=== PATIENT | female | born 1950 | race Caucasian/White ===

== ENCOUNTER 2020-08-14 11:12 | Outpatient (REF) | payer MEDICARE, SELFPAY | END 2020-08-14 11:13 | disposition home or self-care (01) | LOC: HO.BBR 11:12 | PROVIDERS: PCP Family Medicine; Visit Provider Internal Medicine Medical Oncology | DX: Z13.89 Encounter for screening for other disorder (principal) ==

== ENCOUNTER 2020-09-03 14:13 | Outpatient (REF) | payer MEDICARE, SELFPAY | END 2020-09-03 14:14 | disposition home or self-care (01) | LOC: HO.BBR 14:13 | PROVIDERS: Visit Provider Internal Medicine Medical Oncology | DX: Z13.89 Encounter for screening for other disorder (principal) ==

== ENCOUNTER 2020-10-01 14:01 | Outpatient (REF) | payer MEDICARE, SELFPAY | END 2020-10-01 14:02 | disposition home or self-care (01) | LOC: HO.BBR 14:01 | PROVIDERS: Visit Provider Internal Medicine Medical Oncology | DX: Z13.89 Encounter for screening for other disorder (principal) ==

== ENCOUNTER 2020-11-06 14:03 | Outpatient (REF) | payer MEDICARE, SELFPAY | END 2020-11-06 14:04 | disposition home or self-care (01) | LOC: HO.BBR 14:03 | PROVIDERS: Visit Provider Internal Medicine Medical Oncology | DX: Z13.89 Encounter for screening for other disorder (principal) ==

== ENCOUNTER 2020-12-10 14:00 | Outpatient (REF) | payer MEDICARE, SELFPAY | END 2020-12-10 14:01 | disposition home or self-care (01) | LOC: HO.BBR 14:00 | PROVIDERS: Visit Provider Internal Medicine Medical Oncology | DX: Z13.89 Encounter for screening for other disorder (principal) ==

== ENCOUNTER 2021-01-21 14:08 | Outpatient (REF) | payer MEDICARE, SELFPAY | END 2021-01-21 14:09 | disposition home or self-care (01) | LOC: HO.BBR 14:08 | PROVIDERS: Visit Provider Internal Medicine Medical Oncology | DX: Z13.89 Encounter for screening for other disorder (principal) ==

== ENCOUNTER 2021-03-05 14:02 | Outpatient (REF) | payer MEDICARE, SELFPAY | END 2021-03-05 14:03 | disposition home or self-care (01) | LOC: HO.BBR 14:02 | PROVIDERS: Visit Provider Internal Medicine Medical Oncology | DX: Z13.89 Encounter for screening for other disorder (principal) ==

== ENCOUNTER 2021-05-08 14:06 | Outpatient (REF) | payer MEDICARE, SELFPAY | END 2021-05-08 14:07 | disposition home or self-care (01) | LOC: HO.BBR 14:06 | PROVIDERS: Visit Provider Internal Medicine Medical Oncology | DX: Z13.89 Encounter for screening for other disorder (principal) ==

== ENCOUNTER 2021-07-18 14:34 | Outpatient (REF) | payer MEDICARE, SELFPAY | END 2021-07-18 14:35 | disposition home or self-care (01) | LOC: HO.BBR 14:34 | PROVIDERS: Visit Provider Internal Medicine Medical Oncology | DX: Z13.89 Encounter for screening for other disorder (principal) ==

== ENCOUNTER 2021-09-12 14:00 | Outpatient (REF) | payer MEDICARE, SELFPAY | END 2021-09-12 14:01 | disposition home or self-care (01) | LOC: HO.BBR 14:00 | PROVIDERS: Visit Provider Internal Medicine Medical Oncology | DX: Z13.89 Encounter for screening for other disorder (principal) ==

== ENCOUNTER 2021-11-12 14:00 | Outpatient (REF) | payer MEDICARE, SELFPAY | END 2021-11-12 14:01 | disposition home or self-care (01) | LOC: HO.BBR 14:00 | PROVIDERS: Visit Provider Internal Medicine Medical Oncology | DX: Z13.89 Encounter for screening for other disorder (principal) ==

== ENCOUNTER 2022-01-21 13:59 | Outpatient (REF) | payer MEDICARE, SELFPAY | END 2022-01-21 14:00 | disposition home or self-care (01) | LOC: HO.BBR 13:59 | PROVIDERS: Visit Provider Internal Medicine Medical Oncology | DX: Z13.89 Encounter for screening for other disorder (principal) ==

== ENCOUNTER 2022-08-12 14:01 | Outpatient (REF) | payer MEDICARE, SELFPAY | END 2022-08-12 14:02 | disposition home or self-care (01) | LOC: HO.BBR 14:01 | PROVIDERS: Visit Provider Internal Medicine Medical Oncology | DX: Z13.89 Encounter for screening for other disorder (principal) ==

== ENCOUNTER 2022-10-06 14:02 | Outpatient (REF) | payer MEDICARE, SELFPAY | END 2022-10-06 14:03 | disposition home or self-care (01) | LOC: HO.BBR 14:02 | PROVIDERS: Visit Provider Internal Medicine Medical Oncology | DX: Z13.89 Encounter for screening for other disorder (principal) ==

== ENCOUNTER 2022-10-27 13:12 | Outpatient (REF) | payer MEDICARE, SELFPAY | END 2022-10-27 13:13 | disposition home or self-care (01) | LOC: HO.BBR 13:12 | PROVIDERS: Visit Provider Internal Medicine Medical Oncology | DX: Z13.89 Encounter for screening for other disorder (principal) ==

== ENCOUNTER 2022-12-28 14:01 | Outpatient (REF) | payer MEDICARE, SELFPAY | END 2022-12-28 14:02 | disposition home or self-care (01) | LOC: HO.BBR 14:01 | PROVIDERS: Visit Provider Internal Medicine Medical Oncology | DX: Z13.89 Encounter for screening for other disorder (principal) ==

== ENCOUNTER 2023-03-08 14:02 | Outpatient (REF) | payer MEDICARE, SELFPAY | END 2023-03-08 14:03 | disposition home or self-care (01) | LOC: HO.BBR 14:02 | PROVIDERS: Visit Provider Internal Medicine Medical Oncology | DX: Z13.89 Encounter for screening for other disorder (principal) ==

== ENCOUNTER 2023-06-18 14:01 | Outpatient (REF) | payer MEDICARE, SELFPAY | END 2023-06-18 14:02 | disposition home or self-care (01) | LOC: HO.BBR 14:01 | PROVIDERS: PCP Family Medicine; Visit Provider Internal Medicine Medical Oncology | DX: Z13.89 Encounter for screening for other disorder (principal) ==

== ENCOUNTER 2023-09-17 14:20 | Outpatient (REF) | payer MEDICARE, SELFPAY | END 2023-09-17 14:21 | disposition home or self-care (01) | LOC: HO.BBR 14:20 | PROVIDERS: PCP Family Medicine; Visit Provider Internal Medicine Medical Oncology | DX: Z13.89 Encounter for screening for other disorder (principal) ==

== ENCOUNTER 2023-12-21 14:03 | Outpatient (REF) | payer MEDICARE, SELFPAY | END 2023-12-21 14:04 | disposition home or self-care (01) | LOC: HO.BBR 14:03 | PROVIDERS: PCP Family Medicine; Visit Provider Internal Medicine Medical Oncology | DX: Z13.89 Encounter for screening for other disorder (principal) ==

== ENCOUNTER 2024-04-07 14:05 | Outpatient (REF) | payer MEDICARE, SELFPAY | END 2024-04-07 14:06 | disposition home or self-care (01) | LOC: HO.BBR 14:05 | PROVIDERS: PCP Family Medicine; Visit Provider Internal Medicine Medical Oncology | DX: Z13.89 Encounter for screening for other disorder (principal) ==

== ENCOUNTER 2024-04-11 14:14 | Outpatient (REF) | payer MEDICARE, SELFPAY | END 2024-04-11 14:15 | disposition home or self-care (01) | LOC: HO.BBR 14:14 | PROVIDERS: PCP Family Medicine; Visit Provider Internal Medicine Medical Oncology | DX: Z13.89 Encounter for screening for other disorder (principal) ==

== ENCOUNTER 2024-04-18 14:04 | Outpatient (REF) | payer MEDICARE, SELFPAY | END 2024-04-18 14:05 | disposition home or self-care (01) | LOC: HO.BBR 14:04 | PROVIDERS: PCP Family Medicine; Visit Provider Internal Medicine Medical Oncology | DX: Z13.89 Encounter for screening for other disorder (principal) ==

== ENCOUNTER 2024-07-19 14:02 | Outpatient (REF) | payer MEDICARE, SELFPAY ==
--- OUTSIDE RECORDS SUMMARY | 2024-07-19 16:22 | XMS_ITS | Clinical Summary ---
Author Organization [facility] Address [address] [place] [address] Phone Care Team Providers Care Cath Lab Radiology Technician Name Role Phone [facility] Unavailable [phone] Reason for Visit and Chief Complaint Established Patient Plan of Treatment Pending Tests Order Diagnosis Results Due Ordering P olga Follow Up - Appointment 1 Month Displace d spiral fracture of shaft of right tibia, sequela 06/29/22 Nichol SHORT Last Documented On 3 11:59AM ; [facility] In House X-Rays - X-Rays Tibia / fibula, right 2 views ([id number]) Displaced spiral fracture of shaft of right tibia, sequela 07/01/22 Nichol SHORT Last Documented On 3 11:59AM ; [facility] Assessments Includes: Assessments from this encounter No Assessments Recorded Medical Equipment - Implanted Devices Includes: Current Devices No Medical Equipment Recorded Medications Includes: Medications discussed during this encounter and other current Medications Current Medications (continue as prescribed) Tylenol Oral Tablet 04/27/2022 Provider: Diagnosis: Last Documented On 2 10:55AM By Kee Davalos ; [facility] oxyCODONE HCl 5 MG Oral Capsule 04/27/2022 Provider: Diagnosis: Last Documented On 2 10:55AM By Kee Davalos ; [facility] Medications Administered Includes: Administered Medications from this encounter No Administered Medications Recorded Vital Signs Includes: Vital Signs from this encounter Vital Name 06/29/2022 10:33A Blood Pressure Sitting (mmHg) 170/98 Pulse Rate-Sitting (bpm) 88 Temp-Temporal 97.2 Height (in) 64 Weight (lb) 128 Body Mass Index 22 Body Surface Area 1.6 Oxygen Saturation (%) 97 Last Documented: On 06/29/2022 10:33A M ; [facility], Results Includes: Results discussed during this encounter No Results Recorded For Specified Dates History of Present Illness Includes: History of Present Illness from this encounter No History of Present Illness Recorded Social History No Social History Recorded - Smoking Status Unknown Medical History Includes: Medical History addressed during this encounter No Medical History Recorded Family History Includes: Family History addressed during this encounter No Family History Recorded Review of Systems Includes: Review of Systems from this encounter Chief complaint: Follow-up ORIF right tibia and fibula History of present illness: Patient is 72-year-old female who is status post ORIF right distal tibia and fibula by Dr. Redd on 04/11/2022. She was last seen in the office on 05/28/2022. She is seen today for routine follow-up. At her last appointment the tall fracture boot was discontinued for sleeping but she was instructed to continue to wear otherwise. She has been nonweightbearing. Patient is accompanied today by her . She reports pain compliance with wearing the boot throughout the day and maintaining nonweightbearing. Patient is anxious to advance her weightbearing and to get rid of the boot. She complains of diffuse swelling about the ankle and foot. She denies right ankle pain but has been compliant with nonweightbearing. No other complaints at this time. Physical exam: General: Pleasant female sitting comfortably on exam table. In no acute stress. Musculoskeletal: 1 suture noted over anterior mid lower leg which I removed, minimal bleeding noted, Band-Aid applied. Diffuse swelling throughout lower extemity. Well healed surgical scars. Nontender palpation throughout lower leg and ankle. Limited ankle dorsiflexion plantarflexion secondary to stiffness. Sensation intact to light touch over tibial, deep peroneal and superficial peroneal nerve distribution. Fires EHL,FHL, ankle dorsiflexion/plantarflexion. Toes warm well-perfused. Diagnostic imaging: Radiographic images obtained today are compared to those from 05/28/2022 of the right tibia and fibula and right ankle. There is continued satisfactory reduction of the fractures and position of the implants. No definite fracture callus is yet seen. Impression: Status post ORIF right tibia and fibula Plan: The patient may discontinue the fracture boot for sleeping but should wear it otherwise. She should continue nonweightbearing. I described range of motion exercises of the foot and ankle. I asked her to return in 1 month for reexamination and x-ray of the right tibia and fibula. I would anticipate beginning weightbearing and initiating formal physical therapy at that time. Plan: Activity: Advance weightbearing in the fracture boot by 10 lb per day until FWB in boot, recommend using bathroom scale to quantify, ambulate with walker, rest, ice and elevate as needed. Therapy: Begin PT Pain management: Continue Tylenol and ibuprofen prn. No script provided today. DMEs: Continue tall fracture boot when weightbearing. Boot may be removed when sitting and when sleeping. Follow up: Return in 1 month for repeat x-rays right tibia fibula 2 views out of boot. Patient understands and agrees with this plan. Case discussed with Dr. Redd. Mental Status Includes: Mental Status from this encounter No Mental Status Recorded Functional Status Includes: Functional Status from this encounter No Functional Status Recorded Physical Exam Includes: Physical Exam from this encounter Encounters Encounter Provider Location Date Check-In Time Check-Out Time Diagnosis Established Patient Nichol SHORT [facility] 06/29/19 23 10:20AM 11:31AM Insurance Includes: Active Insurance Policies Plan Name Member ID Group # Subscriber Relationship Effect daron Dates 1 - [facility] [id number] LULU BORJA [facility] 2 - [facility] [id number] LULU BORJA Self Clinical Notes Includes: Clinical Notes from this encounter * Progress note Date Encounter Last Documented by 06/29/2022 Established Patient Last documen marlys on 06/29/2022; 12:00 PM, Nichol SHORT; [facility] Physical Findings - Vitals taken 06/29/2022 10:33 am BP-Sitting 170/98 mmHg Pulse Rate-Sitting 88 bpm Temp-Temporal 97.2 F Height 64 in Weight 128 lbs Body Mass Index 22 kg/m2 Body Surface Area 1.6 m2 Oxygen Saturation 97 % Plan StartCited - Displaced spiral fracture of shaft of right tibia, sequela Follow Up/Appointment: 1 Month In House X-Rays/X-Rays: Tibia / fibula, right 2 views ([id number]) EndCited User Defined 4 Chief complaint: Follow-up ORIF right tibia and fibula History of present illness: Patient is 72-year-old female who is status post ORIF right distal tibia and fibula by Dr. Redd on 04/11/2022. She was last seen in the office on 05/28/2022. She is seen today for routine follow-up. At her last appointment the tall fracture boot was discontinued for sleeping but she was instructed to continue to wear otherwise. She has been nonweightbearing. Patient is accompanied today by her . She reports pain compliance with wearing the boot throughout the day and maintaining nonweightbearing. Patient is anxious to advance her weightbearing and to get rid of the boot. She complains of diffuse swelling about the ankle and foot. She denies right ankle pain but has been compliant with nonweightbearing. No other complaints at this time. Physical exam: General: Pleasant female sitting comfortably on exam table. In no acute stress. Musculoskeletal: 1 suture noted over anterior mid lower leg which I removed, minimal bleeding noted, Band-Aid applied. Diffuse swelling throughout lower extemity. Well healed surgical scars. Nontender palpation throughout lower leg and ankle. Limited ankle dorsiflexion plantarflexion secondary to stiffness. Sensation intact to light touch over tibial, deep peroneal and superficial peroneal nerve distribution. Fires EHL,FHL, ankle dorsiflexion/plantarflexion. Toes warm well-perfused. Diagnostic imaging: Radiographic images obtained today are compared to those from 05/28/2022 of the right tibia and fibula and right ankle. There is continued satisfactory reduction of the fractures and position of the implants. No definite fracture callus is yet seen. Impression: Status post ORIF right tibia and fibula Plan: The patient may discontinue the fracture boot for sleeping but should wear it otherwise. She should continue nonweightbearing. I described range of motion exercises of the foot and ankle. I asked her to return in 1 month for reexamination and x-ray of the right tibia and fibula. I would anticipate beginning weightbearing and initiating formal physical therapy at that time. Plan: Activity: Advance weightbearing in the fracture boot by 10 lb per day until FWB in boot, recommend using bathroom scale to quantify, ambulate with walker, rest, ice and elevate as needed. Therapy: Begin PT Pain management: Continue Tylenol and ibuprofen prn. No script provided today. DMEs: Continue tall fracture boot when weightbearing. Boot may be removed when sitting and when sleeping. Follow up: Return in 1 month for repeat x-rays right tibia fibula 2 views out of boot. Patient understands and agrees with this plan. Case discussed with Dr. Redd.
--- OUTSIDE RECORDS SUMMARY | 2024-07-19 16:22 | XMS_ITS | Clinical Summary ---
Author Organization [facility] Address [address] [place] [address] Phone Care Team Providers Care Soap Inspector Name Role Phone [facility] Unavailable [phone] Reason for Visit and Chief Complaint Established Patient Plan of Treatment Pending Tests Order Diagnosis Results Due Ordering Piedad espinoza Follow Up - Appointment 6 weeks Displace d spiral fracture of shaft of right tibia, sequela 07/28/22 Eugene Redd MD Last Documented On 3 8:15AM ; [facility] Assessments Includes: Assessments from this encounter No Assessments Recorded Medical Equipment - Implanted Devices Includes: Current Devices No Medical Equipment Recorded Medications Includes: Medications discussed during this encounter and other current Medications Current Medications (continue as prescribed) Tylenol Oral Tablet 04/27/2022 Provider: Diagnosis: Last Documented On 2 10:55AM By Kee Davalos ; [facility] oxyCODONE HCl 5 MG Oral Capsule 04/27/2022 Provider: Diagnosis: Last Documented On 2 10:55AM By Kee Davalos ; [facility] Medications Administered Includes: Administered Medications from this encounter No Administered Medications Recorded Vital Signs Includes: Vital Signs from this encounter Vital Name 07/28/2022 08:09A Blood Pressure Sitting L 180/108 BP Cuff Size Regular Pulse Rate-Sitting (bpm) 79 Temp-Temporal 97.1 Height (in) 64 Weight (lb) 128 Body Mass Index 22 Body Surface Area 1.6 Oxygen Saturation (%) 96 Last Documented: On 07/28/2022 8:10AM ; [facility] Results Includes: Results discussed during this encounter [...] Includes: Review of Systems from this encounter No Review of Systems Recorded Mental Status Includes: Mental Status from this encounter No Mental Status Recorded Functional Status Includes: Functional Status from this encounter No Functional Status Recorded Physical Exam Includes: Physical Exam from this encounter Encounters Encounter Provider Location Date Check-In Time Check-Out Time Diagnosis Established Patient Eugene Redd MD [facility] 07/28/19 8:00AM 8:39AM Insurance Includes: Active Insurance Policies Plan Name Member ID Group # Subscriber Relationship Effect daron Dates 1 - [employer] [place] [id number] LULU LOCOLIN [facility] 2 - [facility] [id number] LULU LOCOLIN Self Clinical Notes Includes: Clinical Notes from this encounter * Progress note Date Encounter Last Documented by 07/28/2022 Established Patient David frankel on 07/28/2022; 8:15 AM, Eugene Redd MD; [facility] Current Medication - oxyCODONE HCl 5 MG Oral Capsule 0 days, 0 refills - Tylenol Oral Tablet 0 days, 0 refills Physical Findings - Vitals taken 07/28/2022 08:09 am BP-Sitting L 180/108 mmHg BP Cuff Size Regular Pulse Rate-Sitting 79 bpm Temp-Temporal 97.1 F Height 64 in Weight 128 lbs Body Mass Index 22 kg/m2 Body Surface Area 1.6 m2 Oxygen Saturation 96 % Chief complaint: Status post ORIF right tibia and fibula History of Present Illness: This is a 72-year-old woman who is status post ORIF of her right tibia and fibula by me on 04/11/2022. She was last seen on 06/29/2022. She was instructed to begin progressive weightbearing at that time. She presents with her . She reports that she is feeling considerably better. She is walking without an assistive device. Physical exam: Surgical wounds are nicely healed. There is no tenderness at the fracture site. She has good knee range of motion. She has some stiffness of the ankle. She walks with a mild limp. Neurovascular exam is intact. Imaging: Radiographs of the right tibia and fibula taken today show continued good alignment of the fracture and position of the implants with evidence for progressive fracture healing. Impression: Status post ORIF right tibia and fibula Plan: The patient may discontinue the fracture boot. She may increase her activity gradually to tolerance. I gave her prescription for outpatient physical therapy to continue work on gait training, range of motion and strengthening. I asked her to return in 6 weeks for reexamination. No radiographs will be necessary unless she is having difficulty. Plan StartCited - Displaced spiral fracture of shaft of right tibia, sequela Follow Up/Appointment: 6 weeks EndCited
--- OUTSIDE RECORDS SUMMARY | 2024-07-19 16:22 | XMS_ITS ---
Care Plan - [facility] Created on: July 19, 2024 LULU BORJA : 1950 Sex: Female Author Organization [facility] Address [address] [place] [address] Phone Care Team Providers Care Criminal Justice Department Chair Name Role Phone [facility] Unavailable Unavailable
--- OUTSIDE RECORDS SUMMARY | 2024-07-19 16:22 | XMS_ITS | Encounter Summary ---
Author Organization [facility] Address [address] [place] [address] Care Team Providers Care Marketing Rotation Associate Name Role Phone Tami Siu MD Primary Care Provider [phone] Reason for Visit * Reason Comments Hearing Loss Encounter Details Date Type Department Care Team (Latest Contact Info) Description 06/23/2024 10:00 AM EST Office Visit [facility] [address] [address] Chepe Logan MD [address] [place] [address] Sensorineural hearing loss, bilateral (Primary Dx); Impacted cerumen of right ear; Acute infective otitis externa, right Social History Tobacco Use Types Packs/Day Years Used Date Smoking Tobacco: Never Passive Smoke Exposure: Never Smokeless Tobacco: Never Tobacco Cessation:Counseling Given: Not Answered Sex and Gender Information Value Date Recorded Sex Assigned at Female 06/23/2024 8:38 AM EST Gender Identity Female 06/23/2024 8:38 AM EST Sexual Orientation Choose not to disclose 2024 8:38 AM EST documented as of this encounter Last Filed Vital Signs Vital Sign Reading Time Taken Comments Blood Pressure - - Pulse - - Temperature - - Respiratory Rate - - Oxygen Saturation - - Inhaled Oxygen Concentration - - Weight 59 kg (130 lb) 06/23/2024 10:05 AM EST Height 162.6 cm (5' 4 ) 06/23/2024 10:05 AM EST Body Mass Index 22.31 06/23/2024 10:05 AM EST documented in this encounter Progress Notes * Chepe Logan MD - 06/23/2024 10:00 AM EST Images from the original note were not included. [address] [facility] [address] Loc: [phone] Encounter Date: 06/23/2024 Chief Complaint Patient presents with Hearing Loss 1. Sensorineural hearing loss, bilateral 2. Impacted cerumen of right ear 3. Acute infective otitis externa, right - ofloxacin (FLOXIN) 0.3 % otic solution; Administer 5 drops into both ears daily. Dispense: 5 mL; Refill: 0 ASSESSMENT AND PLAN Tonia Barrientos has moderate to moderately severe sensorineural hearing loss in both ears, confirmed by audiogram. The right ear has significant wax impaction causing mild skin breakdown and inflammation of the ear canal. Cerumen impaction removed today. The left ear shows no signs of inflammation or fluid buildup. I reviewed the audiogram with her today. - Prescribe eardrops for right ear: use twice a day for one week. - Recommend hearing aids for sensorineural hearing loss. - Follow-up in three months to reassess earwax buildup and ear canal health. - Repeat hearing test in one year. - Discuss ribs-vdm-qtksrjx Debrox for monthly use to prevent wax buildup. HISTORY OF PRESENT ILLNESS Tonia Barrientos presents with complaints of hearing loss and tinnitus. She reports feeling like she isunderwater and mentions that the sensation has been ongoing for months. She has not used any [id number] treatments for earwax. Her last hearing test was over a year ago. PHYSICAL EXAM The patient was in no acute distress and breathing comfortably on exam. Examination of the ears, nose, oral cavity, oropharynx, and neck was completed and found to be within normal limits with the following notable exceptions and findings highlighted here: - Left ear: mild wax, no inflammation, clear eardrum, no fluid or middle ear effusion. - Right ear: completely blocked with wax, irritation and inflammation of the ear canal due to impacted wax. - Audiogram: moderate to moderately severe sensorineural hearing loss in both ears, type A normal tympanograms. DIAGNOSTIC TESTING REVIEWED Audiogram performed today demonstrates moderate to moderately severe sensorineural hearing loss in both ears with type A normal tympanograms. PROCEDURES CERUMEN REMOVAL: Binocular microscopy was used to evaluate both ears today with cerumen found to beobstructing both ear canals. Under microscopy, the cerumen was removed with curette and microinstruments with improvement in visualization and patient symptoms. PAST MEDICAL HISTORY Past Medical History: Diagnosis Date GERD (gastroesophageal reflux disease) 06/13/2024 Hearing loss 06/13/2024 HTN (hypertension) 06/13/2024 Tinnitus 06/13/2024 Past Surgical History: Procedure Laterality Date ORTHOPEDIC SURGERY History reviewed. No pertinent family history. Social History Tobacco Use Smoking status: Never Passive exposure: Never Smokeless tobacco: Never MEDICATIONS Current Outpatient Medications: metoPROLOL SUCCINATE (TOPROL-XL) 50 MG 24 hr tablet, Take 50 mg by mouth daily., Disp: , Rfl: ofloxacin (FLOXIN) 0.3 % otic solution, Administer 5 drops into both ears daily., Disp: 5 mL, Rfl: 0 ALLERGIES Allergies Allergen Reactions Lisinopril Unknown/Patient and Family Unable to Define VISIT ORDERS 1. Sensorineural hearing loss, bilateral 2. Impacted cerumen of right ear 3. Acute infective otitis externa, right - ofloxacin (FLOXIN) 0.3 % otic solution; Administer 5 drops into both ears daily. Dispense: 5 mL; Refill: 0 Chepe Logan MD documented in this encounter Plan of Treatment Upcoming Encounters Date Type Department Care Team (Late st Contact Info) Description 09/25/2024 10:30 AM EDT Office Visit [facility] [address] [address] Chepe Logan MD [address] [place] [address] documented as of this encounter Visit Diagnoses Diagnosis Sensorineural hearing loss, bilateral- Primary Impacted cerumen of right ear Impacted cerumen Acute infective otitis externa, right documented in this encounter Care Teams Marketing Rotation Associate Relationship Specialty Start Date End Date Tami Siu MD [address] [place] [address] PCP - General Family Medicine 06/13/24 documented as of this encounter
--- OUTSIDE RECORDS SUMMARY | 2024-07-19 16:22 | XMS_ITS | Clinical Summary ---
Author Organization [facility] Address [address] [place] [address] Phone Care Team Providers Care Mobile Solutions Architect Name Role Phone [facility] Unavailable Unavailable Reason for Visit and Chief Complaint Post Op Visit/Follow Up Plan of Treatment 1. Tall fracture boot right lower extremity for protection and comfort. 2. Ambulate with a walker nonweightbearing right lower extremity. 3. Encourage range of motion of right ankle and right knee. 4. May shower. 5. Return to office in [address] Redd. - Last Documented On 04/28/2022 11:35AM ; [facility] Pending Tests Order Diagnosis Results Due Ordering Piedad espinoza Follow Up - Appointment 1 Month Displace d spiral fracture of shaft of right tibia, sequela 04/28/22 Bladimir Dorsey MD Last Documented On 2 11:35AM ; [facility] Assessments Includes: Assessments from this encounter No Assessments Recorded Medical Equipment - Implanted Devices Includes: Current Devices No Medical Equipment Recorded Medications Includes: Medications discussed during this encounter and other current Medications Current Medications (continue as prescribed) Tylenol Oral Tablet 04/27/2022 Provider: Diagnosis: Last Documented On 2 10:55AM By Kee Davalos ; [facility] oxyCODONE HCl 5 MG Oral Capsule 04/27/2022 Provider: Diagnosis: Last Documented On 2 10:55AM By Kee Davalos ; [facility] Medications Administered Includes: Administered Medications from this encounter No Administered Medications Recorded Vital Signs Includes: Vital Signs from this encounter Vital Name 04/27/2022 10:54A Blood Pressure Sitting (mmHg) 160/78 BP Cuff Size Regular Pulse Rate-Sitting (bpm) 84 Temp-Temporal 97 Height (in) 64 Weight (lb) 123 Body Mass Index (kg/m2) 21.1 Body Surface Area (m2) 1.6 Oxygen Saturation (%) 99 Last Documented: On 04/27/2022 10:54A M ; [facility], Results Includes: Results discussed during this encounter No Results Recorded For Specified Dates History of Present Illness Includes: History of Present Illness from this encounter HPI The patient is a 72-year-old female. Patient has a past medical history of hypertension hemochromatosis and angio edema. She was playing with her granddaughter when she fell on an uneven surface. She developed immediate pain in her right lower leg. X-rays showed fractures involving the shaft of her right tibia and right fibula. She was treated surgically on 04/11/2022 with an intramedullary rogelio for the fibula along with a long medial tibial plate for the tibia fracture. She is here today for follow-up. Social History No Social History Recorded - Smoking Status Unknown Medical History Includes: Medical History addressed during this encounter No Medical History Recorded Family History Includes: Family History addressed during this encounter No Family History Recorded Review of Systems Includes: Review of Systems from this encounter 1. Status post reduction of fixation of right tibia and fibula fractures on 04/11/2022. 2. Reduction fixation is remained stable. 3. All incisions well-healed. 4. Neurovascular status right lower extremity intact. Mental Status Includes: Mental Status from this encounter No Mental Status Recorded Functional Status Includes: Functional Status from this encounter No Functional Status Recorded Physical Exam Includes: Physical Exam from this encounter Encounters Encounter Provider Location Date Check-In Time Check-Out Time Diagnosis Post Op Visit/Follow Up Bladimir Dorsey MD [facility] 04/27/20 10:20AM 11:33AM Insurance Includes: Active Insurance Policies Plan Name Member ID Group # Subscriber Relationship Effect daron Dates 1 - [employer] [place] [id number] LULU BORJA [facility] 2 - [facility] [id number] LULU BORJA Self Clinical Notes Includes: Clinical Notes from this encounter No Clinical Notes Recorded
--- OUTSIDE RECORDS SUMMARY | 2024-07-19 16:22 | XMS_ITS | Clinical Summary ---
Author Organization [facility] Address [address] [place] [address] Phone Care Team Providers Care Immigration Lawyer Name Role Phone [facility] Un[facility] [phone] Reason for Visit and Chief Complaint Established Patient Plan of Treatment Pending Tests Order Diagnosis Results Due Ordering Piedad espinoza Follow Up - Appointment 1 Month Unsp fra cture of shaft of right tibia, init for clos fx 05/28/22 Eugene Redd MD Last Documented On 2 10:21AM ; [facility] Assessments Includes: Assessments from this encounter No Assessments Recorded Medical Equipment - Implanted Devices Includes: Current Devices No Medical Equipment Recorded Medications Includes: Medications discussed during this encounter and other current Medications Current Medications (continue as prescribed) Tylenol Oral Tablet 04/27/2022 Provider: Diagnosis: Last Documented On 2 10:55AM By Kee Davalos ; [facility] oxyCODONE HCl 5 MG Oral Capsule 04/27/2022 Provider: Diagnosis: Last Documented On 2 10:55AM By Kee Davalos ; [facility] Medications Administered Includes: Administered Medications from this encounter No Administered Medications Recorded Vital Signs Includes: Vital Signs from this encounter Vital Name 05/28/2022 10:10A Blood Pressure Sitting R 167/100 BP Cuff Size Regular Pulse Rate-Sitting (bpm) 82 Temp-Temporal 97.5 Height (in) 64 Weight (lb) 128 Body Mass Index (kg/m2) 22.0 Body Surface Area (m2) 1.6 Oxygen Saturation (%) 99 Last Documented: On 05/28/2022 10:10A M ; [facility] Results Includes: Results discussed during this encounter [...] Time Diagnosis Established Patient Eugene Redd MD [facility], 05/28/20 22 9:40AM 10:25AM Insurance Includes: Active Insurance Policies Plan Name Member ID Group # Subscriber Relationship Effect darno Dates 1 - [facility] [id number] LULU BORJA [facility] 2 - [facility] [id number] LULU BORJA Self Clinical Notes Includes: Clinical Notes from this encounter No Clinical Notes Recorded
--- OUTSIDE RECORDS SUMMARY | 2024-07-19 16:22 | XMS_ITS | Clinical Summary ---
Author Organization [facility] Address [address] [place] [address] Care Team Providers Care Lidder Name Role Phone Unavailable Primary Care Provider Unavailabl e Social History Tobacco Use Types Packs/Day Years Used Date Smoking Tobacco: Never Assessed Sex and Gender Information Value Date Recorded Sex Assigned at Not on file Gender Identity Not on file Sexual Orientation Not on file Plan of Treatment Health Maintenance Due Date Last Done Comments Breast Cancer Screening 1950 DTaP,Tdap,and Td Vaccines (1 - Tdap) 1970 Zoster Vaccines (1 of 2) 2001 Pneumococcal Vaccine: 65+ Years (1 of 1 - PCV) 2016 Colorectal Cancer Screening: Colonoscopy 05/23/2022 Depression Screening 05/23/2022 Falls Risk Assessment 05/23/2022 Hepatitis C Screening 05/23/2022 Osteoporosis Screening (Bone Density Screening) 05/23/2022 Social Influencers of Health Screening 05/23/2022 COVID-19 Vaccine (1 - 2023-2 5 season) 2024 Influenza Vaccine (#1) 2024 , 04/10/2018 RSV Immunization Patients 60 + Years Old (1 - 1-dose 75+ series) 2026 HIB Vaccines Aged Out No longer eligi ble based on patient's age to complete this topic HPV Vaccines Aged Out No longer eligi ble based on patient's age to complete this topic Hepatitis A Vaccines Aged Out No long er eligible based on patient's age to complete this topic Hepatitis B Vaccines Aged Out No long er eligible based on patient's age to complete this topic IPV Vaccines Aged Out No longer eligi ble based on patient's age to complete this topic MMR Vaccines Aged Out No longer eligi ble based on patient's age to complete this topic Meningococcal ACWY Vaccine Aged Out N o longer eligible based on patient's age to complete this topic RSV Immunization Patients Under 20 months Aged Out No longer eligible b ased on patient's age to complete this topic Varicella Vaccines Aged Out No longer eligible based on patient's age to complete this topic
--- OUTSIDE RECORDS SUMMARY | 2024-07-19 16:22 | XMS_ITS ---
Author Organization [facility] Address [address] [place] [address] Phone Care Team Providers Care Hand Presser Name Role Phone [facility] Un[facility] [phone] Plan of Treatment No Plan of Treatment Recorded Assessments Includes: Assessments for all patient encounters No Assessments Recorded Medical Equipment - Implanted Devices Includes: Current and historical Devices No Medical Equipment Recorded Medications Includes: Current and historical Medications Current Medications (continue as prescribed) Tylenol Oral Tablet 04/27/2022 Provider: Diagnosis: Last Documented On 2 10:55AM By Kee Davalos ; [facility] oxyCODONE HCl 5 MG Oral Capsule 04/27/2022 Provider: Diagnosis: Last Documented On 2 10:55AM By Kee Davalos ; [facility] Medications Administered Includes: Administered Medications in patient's chart No Administered Medications Recorded Results Includes: Results from 07/19/2023 through 07/19/2024 No Results Recorded For Specified Dates History of Present Illness History of Present Illness not supported for this document type No History of Present Illness Recorded Social History No Social History Recorded - Smoking Status Unknown Medical History Includes: Medical History in patient's chart No Medical History Recorded Family History Includes: Family History in patient's chart No Family History Recorded Review of Systems Review of Systems not supported for this document type No Review of Systems Recorded Mental Status No Mental Status Recorded Functional Status No Functional Status Recorded Physical Exam Physical Exam not supported for this document type No Physical Exam Recorded Insurance Includes: Active Insurance Policies Plan Name Member ID Group # Subscriber Relationship Effect daron Dates 1 - [facility] [id number] LULU BORJA [facility] 2 - [facility] [id number] LULU BORJA Self Clinical Notes Includes: Signed Clinical Notes starting from 05/31/2022 No Clinical Notes Recorded
--- OUTSIDE RECORDS SUMMARY | 2024-07-19 16:22 | XMS_ITS | Continuity of Care Document ---
Author Organization [facility] Address [address] [place] [address]- Care Team Providers Care Cupboard Builder Name Role Phone Tami Siu MD Primary Care Physician [phone] Encounter 06/28/24 - 07/05/24 [facility] [address], [address] [place] [address]- Attending Physician: Tami Siu MD Admitting Physician: Tami Siu MD Referring Physician: Tami Siu MD Encounter Type: OutPatient One Time Allergies, Adverse Reactions, Alerts No Known Allergies Immunizations Given and Recorded Vaccine Date Status Refusal Reason diphtheria-tetanus toxoids (DT) 1 05/04/02 Given 1Admin Note: Declined Medications calcium and vitamin D combination 600 mg-125 u oral tablet 1, tablet, By Mouth, 2 times a day, 0 Refills Start Date: 01/01/06 Status: Ordered Repeat number: 1 metoprolol (OP) 0 Refills, Maintenance, 2 Start Date: 10/08/22 Status: Ordered Repeat number: 1 Problem List Condition Confirmation Course Effective Dates Status Health St atus Informant Acne Confirmed Active Osteopenia Confirmed Active Results Radiology Reports * Exam Date Time Procedure Performing Provider Status 06/28/24 10:59 AM MM Digital Mammo Unilat Right Svetlana Santana; Hermes (Verified) Notes: (MM Digital Mammo Unilat Right) Reason For Exam: Right breast 6 month follow up RESULT: MM Digital Mammo Unilat Right PROCEDURE: MM Digital Mammo Unilat Right INDICATION: Follow-up of probably benign microcalcifications. COMPARISON: 12/22/2023 and 12/14/2023. TECHNIQUE: Digital diagnostic mammogram consisting of CC and mediolateral magnification views of the right breast. Computer-aided detection (CAD) was not utilized in the interpretation of this study. DENSITY: The breast tissue is heterogeneously dense, which may obscure small masses. FINDINGS: Small focus of grouped microcalcifications in the right breast do not demonstrate suspicious interval change. No new calcification seen in the imaged portion of the right breast. IMPRESSION: Stable probably benign microcalcifications in the right breast. Continued follow-up with diagnostic mammogram in 6 months is recommended document long-term stability. RECOMMENDATION: Follow-up right diagnostic mammogram in 6 months BI-RADS: 3 (Probably Benign) Lay letter mailed to patient WSN: [id number] Ordering Physician: Tami Siu Dictated By: Emma Hammond MD Dictated Date/Time: 06/28/24 11:02 am Reviewed By: Emma Hammond MD Signed By: Emma Hammond MD Signed Date/Time: 06/28/24 11:02 am Transcribed By: MIAH Supervisor Billposting Date/Time: 06/28/24 11:01 am Birads: Patient Care team information Care Team Personnel Name: Tami Siu MD Position: S Physician - Primary Care Member Role: PCP Address: [address] [place] [address] Telecom: Care Team Related Persons Name: FADUMO BORJA Name: SANDRA GROSS Name: ABBI TODD Insurance Providers Guarantor name: LULU LOCOLIN Health Plan Information #: 1 Payer: [employer] ADV PPO Member Number: [id number] Policy Number: NA Group Number: [id number] Health Plan Information #: 2 Payer: [employer] Member Number: [id number] Policy Number: NA Group Number: [id number]
--- OUTSIDE RECORDS SUMMARY | 2024-07-19 16:23 | XMS_ITS | Encounter Summary ---
Author Organization [facility] Address [address] [place] [address] Care Team Providers Care Aircraft Lay Out Worker Name Role Phone Tami Siu MD Primary Care Provider [phone] Encounter Details Date Type Department Care Team (Latest Contact Info) Description 06/23/2024 10:15 AM EST Clinical Support [facility] [address] [place] [address] Effie Mg Au.D [address] [place], [place] [id number] Sensorineural hearing loss, bilateral (Primary Dx); Tinnitus of both ears Social History Tobacco Use Types Packs/Day Years Used Date Smoking Tobacco: Never Passive Smoke Exposure: Never Smokeless Tobacco: Never Sex and Gender Information Value Date Recorded Sex Assigned at Female 06/23/2024 8:38 AM EST Gender Identity Female 06/23/2024 8:38 AM EST Sexual Orientation Choose not to disclose 2024 8:38 AM EST documented as of this encounter Procedure Notes * Sandhya Botello - 06/23/2024 10:15 AM ESTAssociated Order(s): BASIC COMPREHENSIVE AU Procedure(s): BASIC COMPREHENSIVE AU Pre-Procedure Diagnose(s): Sensorineural hearing loss, bilateral; Tinnitus of both ears Images from the original note were not included. documented in this encounter Plan of Treatment Upcoming Encounters Date Type Department Care Team (Late st Contact Info) Description 09/25/2024 10:30 AM EDT Office Visit [facility] [address] [place] [address] Chepe Logan MD [address] [facility] [address] [place] [address] documented as of this encounter Procedures Procedure Name Priority Date/Time Associated Diagnosis Comments BASIC COMPREHENSIVE AU Routine 10:15 AM EST Sensorineural hearing loss, bilateral Tinnitus of both ears documented in this encounter Results * BASIC COMPREHENSIVE AU (06/23/2024 10:15 AM EST) Narrative Effie Mg Au.D - 06/23/2024 10:15 AM EST Sandhya Botello ? 06/23/2024 10:43 AM Chepe Logan MD AMB ORDERABLE PERFOR ALICJA documented in this encounter Visit Diagnoses Diagnosis Sensorineural hearing loss, bilateral- Primary Tinnitus of both ears Unspecified tinnitus documented in this encounter Care Teams Aircraft Lay Out Worker Relationship Specialty Start Date End Date Tami Siu MD [address] [place] [address] PCP - General Family Medicine 06/13/24 documented as of this encounter
--- OUTSIDE RECORDS SUMMARY | 2024-07-19 16:23 | XMS_ITS | Clinical Summary ---
Author Organization [facility] Address [address] [place] [address] Care Team Providers Care Ecological Risk Assessor Name Role Phone Tami Siu MD Primary Care Provider [phone] Allergies Active Allergy Reactions Criticality Noted Date Comments Lisinopril Unknown/Patient and Family Unable to Define Medium 06/13/2024 Medications Medication Sig Dispensed Refills Start Date End Date Status metoPROLOL SUCCINATE (TOPROL-XL) 50 MG 24 hr tablet Take 50 mg by mouth daily. Active ofloxacin (FLOXIN) 0.3 % otic solutionIndications: Acute infective otitis externa, right Administer 5 drops into both ears daily. 5 mL 06/23/2024 Active Active Problems Problem Noted Date Diagnosed Date HTN (hypertension) 06/13/2024 GERD (gastroesophageal reflux disease) 4 Tinnitus 06/13/2024 Hearing loss 06/13/2024 Encounters Date Type Department Care Team Description 06/23/2024 10:15 AM EST Clinical Support [facility] [address] [address] Effie Mg Au.D Sensorineural hearing loss, bilateral (Primary Dx); Tinnitus of both ears 06/23/2024 10:00 AM EST Office Visit [facility] [address] [address] Chepe Logan MD Sensorineural hearing loss, bilateral (Primary Dx); Impacted cerumen of right ear; Acute infective otitis externa, right from Last 3 Months Immunizations Name Administration Dates Next Due DT 05/04/2002 Influenza High-Dose Trivalen t,(FLUZONE HIGH-DOSE), Perservative Free IM 0.5 mL 65 years and older 04/16/2024,04/29/2023,04/08/2022,04/24,04/09/2020 Pneumococcal Conjugate 13-Valent 02/02/2019 Pneumococcal Polysaccharide 23-Valent 04/09/2020 Zoster Vaccine Live/Attenuat ed (Zostavax) 05/27/2023,01/22/2023 Social History Tobacco Use Types Packs/Day Years Used Date Smoking Tobacco: Never Passive Smoke Exposure: Never Smokeless Tobacco: Never Tobacco Cessation:Counseling Given: Not Answered Sex and Gender Information Value Date Recorded Sex Assigned at Female 06/23/2024 8:38 AM EST Gender Identity Female 06/23/2024 8:38 AM EST Sexual Orientation Choose not to disclose 2024 8:38 AM EST Last Filed Vital Signs Vital Sign Reading Time Taken Comments Blood Pressure - - Pulse - - Temperature - - Respiratory Rate - - Oxygen Saturation - - Inhaled Oxygen Concentration - - Weight 59 kg (130 lb) 06/23/2024 10:05 AM EST Height 162.6 cm (5' 4 ) 06/23/2024 10:05 AM EST Body Mass Index 22.31 06/23/2024 10:05 AM EST Plan of Treatment Upcoming Encounters Date Type Department Care Team (Late st Contact Info) Description 09/25/2024 10:30 AM EDT Office Visit [facility] [address], [place] [address] Chepe Logan MD [address] [place] [address] Health Maintenance Due Date Last Done Comments Hepatitis C Virus Screening 1950 Mammogram 1991 Colonoscopy 1996 DTaP/Tdap/Td Vaccines (2 - Tdap) 05/04/2012 05/04/2002 DXA Bone Density (Females,Ages 65 and older) 2016 Zoster (Shingles) Vaccine (2 of 3) 07/22/2023 05/27/2023, 01/22/2023 COVID-19 Vaccine (2023- season) 2024 RSV Vaccine 60 years and older and Patients (1 - 1-dose 75+ series) 2026 Pneumococcal Vaccines 50+ Completed 04/09/2020, Influenza Vaccine Completed 04/16/2024, , 04/08/2022, Additional history exists Hepatitis B Vaccines Aged Out No long er eligible based on patient's age to complete this topic Procedures Procedure Name Priority Date/Time Associated Diagnosis Comments BASIC COMPREHENSIVE AU Routine 10:15 AM EST Sensorineural hearing loss, bilateral Tinnitus of both ears from Last 3 Months Results * BASIC COMPREHENSIVE AU (06/23/2024 10:15 AM EST) Narrative Effie Mg Au.D - 06/23/2024 10:15 AM EST Sandhya Botello ? 06/23/2024 10:43 AM Chepe Logan MD AMB ORDERABLE PERFOR ALICJA from Last 3 Months Care Teams Ecological Risk Assessor Relationship Specialty Start Date End Date Tami Siu MD [address] [place] [address] PCP - General Family Medicine 06/13/24
--- OUTSIDE RECORDS SUMMARY | 2024-07-19 16:23 | XMS_ITS | Clinical Summary ---
Author Organization [facility] Address [address] [place] [address] Phone Care Team Providers Care Inspector Scales Name Role Phone [facility] Unavailable [phone] Reason for Visit and Chief Complaint Established Patient Plan of Treatment Pending Tests Order Diagnosis Results Due Ordering P olga Follow Up - Appointment PRN Displace d spiral fracture of shaft of right tibia, sequela 09/08/22 Eugene Redd MD Last Documented On 3 10:58AM ; [facility] Assessments Includes: Assessments from this encounter No Assessments Recorded Medical Equipment - Implanted Devices Includes: Current Devices No Medical Equipment Recorded Medications Includes: Medications discussed during this encounter and other current Medications Current Medications (continue as prescribed) Tylenol Oral Tablet 04/27/2022 Provider: Diagnosis: Last Documented On 2 10:55AM By Kee Davalos ; [facility] oxyCODONE HCl 5 MG Oral Capsule 04/27/2022 Provider: Diagnosis: Last Documented On 2 10:55AM By Kee Davalos ; [facility] Medications Administered Includes: Administered Medications from this encounter No Administered Medications Recorded Results Includes: Results discussed during this encounter [...] Time Diagnosis Established Patient Eugene Redd MD [facility], 09/09/19 10:40AM 10:54AM Insurance Includes: Active Insurance Policies Plan Name Member ID Group # Subscriber Relationship Effect daron Dates 1 - [facility] [id number] LULU BORJA lf 2 - [facility] [id number] LULU BORJA Self Clinical Notes Includes: Clinical Notes from this encounter * Progress note Date Encounter Last Documented by 09/08/2022 Established Patient Last documeottoniel frankel on 09/08/2022; 10:58 AM, Eugene Redd MD; [facility], Current Medication - oxyCODONE HCl 5 MG Oral Capsule 0 days, 0 refills - Tylenol Oral Tablet 0 days, 0 refills Physical Findings Chief complaint: Follow-up ORIF right tibia and fibula History of Present Illness: This is a 72-year-old woman who is status post ORIF of her right tibia and fibula by me on 04/11/2022. She was last seen on 07/28/2022. The fracture boot was discontinued at that time. She presents with her today. She has no complaints. Her leg is feeling progressively better. She is not having pain. She is ambulating with regular shoes. Physical exam: Surgical wounds are healed. There is no redness or drainage. There is mild residual diffuse swelling in the foot and leg. There is no tenderness at the fracture sites. There is no pain with ankle motion. Neurovascular exam is otherwise intact. Imaging: Radiographs of her right tibia and fibula from 07/28/2022 are reviewed and show the fracture to be healing in good position. Impression: Status post ORIF right tibia and fibula fractures. Plan: The patient may continue to increase her activity to tolerance. I informed her that sometimes people get some chronic swelling in the leg but it is common to have some swelling for about a year after the injury. She will return to the office if she has residual symptoms. Plan StartCited - Displaced spiral fracture of shaft of right tibia, sequela Follow Up/Appointment: PRN EndCited
--- OUTSIDE RECORDS SUMMARY | 2024-07-19 16:23 | XMS_ITS ---
Author Name [facility] Organization Unknown History of Medication Use Medication Directions Dispensed Refills Start Date End Date Stat ofloxacin (FLOXIN) 0.3 % otic solution Administer 5 drops into both ears daily. 06/23/2024 07/01/2024 active Problems Problem Status Onset Date Problem Type Date of Resolution Source HTN (hypertension) active 2024-06-13 ProblemAct [facility] Tinnitus active 2024-06-13 ProblemAct HHT Hearing loss active 2024-06-13 ProblemAct [facility] Impacted cerumen of right ear active EncounterDiagnosisAct [facility] Sensorineural hearing loss, bilateral active EncounterDiagnosisAct [facility] CT GERD (gastroesophageal reflux disease) active 2024-06-13 ProblemAct [facility] Acute infective otitis externa, right active EncounterDiagnosisAct [facility] Immunizations Vaccine Date Source Lot Number Status Influenza High-Dose Trivalen t,(FLUZONE HIGH-DOSE), Perservative Free IM 0.5 mL 65 years and older 04/09/2020 [facility] [id number] completed Zoster Vaccine Live/Attenuated (Zostavax) 01/22/2023 [facility] completed Pneumococcal Conjugate 13-Valent 02/02/2019 [facility] [id number] completed DT 05/04/2002 [facility] UNK completed Pneumococcal Polysaccharide 23-Valent 04/09/2020 [facility] [id number] completed Influenza High-Dose Trivalen t,(FLUZONE HIGH-DOSE), Perservative Free IM 0.5 mL 65 years and older 04/08/2022 [facility] completed Influenza High-Dose Trivalen t,(FLUZONE HIGH-DOSE), Perservative Free IM 0.5 mL 65 years and older 04/29/2023 [facility] [id number] completed Zoster Vaccine Live/Attenuated (Zostavax) 05/27/2023 [facility] completed Influenza High-Dose Trivalen t,(FLUZONE HIGH-DOSE), Perservative Free IM 0.5 mL 65 years and older 04/16/2024 [facility] completed Influenza High-Dose Trivalen t,(FLUZONE HIGH-DOSE), Perservative Free IM 0.5 mL 65 years and older 04/24/2021 [facility] [id number] completed
== END 2024-07-19 14:03 | disposition home or self-care (01) ==
LOC: HO.BBR 14:02
PROVIDERS: PCP Family Medicine; Visit Provider Internal Medicine Medical Oncology
DX: Z13.89 Encounter for screening for other disorder (principal)

== ENCOUNTER 2024-07-31 13:11 | Outpatient (REF) | payer MEDICARE, SELFPAY ==
--- OUTSIDE RECORDS SUMMARY | 2024-07-31 14:14 | XMS_ITS | Clinical Summary ---
Author Organization [facility] Address [address] [place] [address] Phone Care Team Providers Care Area Relief Pilot Name Role Phone [facility] Un[facility] [phone] Reason for Visit and Chief Complaint Established Patient Plan of Treatment Pending Tests Order Diagnosis Results Due Ordering Piedad espinoza Follow Up - Appointment 1 Month Unsp fra cture of shaft of right tibia, init for clos fx 05/28/22 Eugene Redd MD Last Documented On 2 10:21AM ; [facility] Assessments Includes: Assessments from this encounter No Assessments Recorded Medical Equipment - Implanted Devices Includes: Current Devices No Medical Equipment Recorded Medications Includes: Medications discussed during this encounter and other current Medications Current Medications (continue as prescribed) Tylenol Oral Tablet 04/27/2022 Provider: Diagnosis: Last Documented On 2 10:55AM By Kee Davalos ; [facility] oxyCODONE HCl 5 MG Oral Capsule 04/27/2022 Provider: Diagnosis: Last Documented On 2 10:55AM By Kee Davalos ; [facility] Medications Administered Includes: Administered Medications from [...] Last Documented: On 05/28/2022 10:10A M ; [facility] Results Includes: Results discussed during this [...] Time Diagnosis Established Patient Eugene Redd MD [facility], 05/28/20 22 9:40AM 10:25AM Insurance Includes: Active Insurance Policies Plan Name Member ID Group # Subscriber Relationship Effect daron Dates 1 - [facility] [id number] LULU BORJA [facility] 2 - [facility] [id number] LULU BORJA Self Clinical Notes Includes: Clinical Notes from this encounter No Clinical Notes Recorded
--- OUTSIDE RECORDS SUMMARY | 2024-07-31 14:14 | XMS_ITS | Clinical Summary ---
Author Organization [facility] Address [address] [place] [address] Phone Care Team Providers Care Head Sawyer Name Role Phone [facility] Unavailable [phone] Reason for Visit and Chief Complaint Established Patient Plan of Treatment Pending Tests Order Diagnosis Results Due Ordering Piedad espinoza Follow Up - Appointment 6 weeks Displace d spiral fracture of shaft of right tibia, sequela 07/28/22 Eugene Redd MD Last Documented On 3 8:15AM ; [facility] Assessments Includes: Assessments from this encounter No Assessments Recorded Medical Equipment - Implanted Devices Includes: Current Devices No Medical Equipment Recorded Medications Includes: Medications discussed during this encounter and other current Medications Current Medications (continue as prescribed) Tylenol Oral Tablet 04/27/2022 Provider: Diagnosis: Last Documented On 2 10:55AM By Kee Davalos ; [facility] oxyCODONE HCl 5 MG Oral Capsule 04/27/2022 Provider: Diagnosis: Last Documented On 2 10:55AM By Kee Davalos ; [facility] Medications Administered Includes: Administered Medications from this encounter No Administered Medications Recorded Vital Signs Includes: Vital Signs from this encounter Vital Name 07/28/2022 08:09A Blood Pressure Sitting L 180/108 BP Cuff Size Regular Pulse Rate-Sitting (bpm) 79 Temp-Temporal 97.1 Height (in) 64 Weight (lb) 128 Body Mass Index 22 Body Surface Area 1.6 Oxygen Saturation (%) 96 Last Documented: On 07/28/2022 8:10AM ; [facility] Results Includes: Results discussed during this encounter [...] Time Diagnosis Established Patient Eugene Redd MD [facility] 07/28/19 8:00AM 8:39AM Insurance Includes: Active Insurance Policies Plan Name Member ID Group # Subscriber Relationship Effect daron Dates 1 - [employer] [id number] LULU LOCOLIN [facility] 2 - [facility] [id number] LULU LOCOLIN Self Clinical Notes Includes: Clinical Notes from this encounter * Progress note Date Encounter Last Documented by 07/28/2022 Established Patient David frankel on 07/28/2022; 8:15 AM, Eugene Redd MD; [facility] Current Medication - oxyCODONE HCl 5 MG [...]
--- OUTSIDE RECORDS SUMMARY | 2024-07-31 14:14 | XMS_ITS ---
Care Plan - [facility] Created on: July 31, 2024 LULU BORJA : 1950 Sex: Female Author Organization [facility] Address [address] [place] [address] Phone Care Team Providers Care Infection Prevention Specialist Name Role Phone [facility] Unavailable Unavailable
--- OUTSIDE RECORDS SUMMARY | 2024-07-31 14:14 | XMS_ITS | Clinical Summary ---
Author Organization [facility] Address [address] [place] [address] Phone Care Team Providers Care Loan Administrator Name Role Phone [facility] Unavailable [phone] Reason for Visit and Chief Complaint Established Patient Plan of Treatment Pending Tests Order Diagnosis Results Due Ordering P olga Follow Up - Appointment 1 Month Displace d spiral fracture of shaft of right tibia, sequela 06/29/22 Nichol SHORT Last Documented On 3 11:59AM ; [facility] In House X-Rays - X-Rays Tibia / fibula, right 2 views ([id number]) Displaced spiral fracture of shaft of right tibia, sequela 07/01/22 Nichol SHORT Last Documented On 3 11:59AM ; [facility] Assessments Includes: Assessments from this encounter No Assessments Recorded Medical Equipment - Implanted Devices Includes: Current Devices No Medical Equipment Recorded Medications Includes: Medications discussed during this encounter and other current Medications Current Medications (continue as prescribed) Tylenol Oral Tablet 04/27/2022 Provider: Diagnosis: Last Documented On 2 10:55AM By Kee Davalos ; [facility] oxyCODONE HCl 5 MG Oral Capsule 04/27/2022 Provider: Diagnosis: Last Documented On 2 10:55AM By Kee Davalos ; [facility] Medications Administered Includes: Administered Medications from this encounter No Administered Medications Recorded Vital Signs Includes: Vital Signs from this encounter Vital Name 06/29/2022 10:33A Blood Pressure Sitting (mmHg) 170/98 Pulse Rate-Sitting (bpm) 88 Temp-Temporal 97.2 Height (in) 64 Weight (lb) 128 Body Mass Index 22 Body Surface Area 1.6 Oxygen Saturation (%) 97 Last Documented: On 06/29/2022 10:33A M ; [facility], Results Includes: Results discussed during this encounter [...] Check-Out Time Diagnosis Established Patient Nichol SHORT [facility] 06/29/19 23 10:20AM 11:31AM Insurance Includes: Active Insurance Policies Plan Name Member ID Group # Subscriber Relationship Effect daron Dates 1 - [facility] [id number] LULU BORJA [facility] 2 - [facility] [id number] LULU BORJA Self Clinical Notes Includes: Clinical Notes from this encounter * Progress note Date Encounter Last Documented by 06/29/2022 Established Patient Last documen marlys on 06/29/2022; 12:00 PM, Nichol SHORT; [facility] Physical Findings - Vitals taken 06/29/2022 [...] X-Rays/X-Rays: Tibia / fibula, right 2 views ([id number]) EndCited User Defined 4 Chief complaint: Follow-up [...]
--- OUTSIDE RECORDS SUMMARY | 2024-07-31 14:15 | XMS_ITS | Clinical Summary ---
Author Organization [facility] ity Address [address] [place] [address] Care Team Providers Care Heel Layer Name Role Phone Unavailable Primary Care Provider Unavailabl e Social History Tobacco Use Types Packs/Day Years Used Date Smoking Tobacco: Never Assessed Comments Unknown Sex and Gender Information Value Date Recorded Sex Assigned at Not on file Legal Sex Female 7:02 PM EST Gender Identity Not on file Sexual Orientation Not on file Plan of Treatment Health Maintenance Due Date Last Done Comments Breast Cancer Screening 1950 DTaP,Tdap,and Td Vaccines (1 - Tdap) 1958 Pneumococcal Vaccine: 50+ Years (1 of 1 - PCV) 2001 Zoster Vaccines (1 of 2) 2001 Colorectal Cancer Screening: Colonoscopy 05/23/2022 Depression Screening 05/23/2022 Falls Risk Assessment 05/23/2022 Hepatitis C Screening 05/23/2022 Osteoporosis Screening (Bone Density Screening) 05/23/2022 Social Influencers of Health Screening 05/23/2022 COVID-19 Vaccine ( - 2023-2 5 season) 2024 Influenza Vaccine [...] patient's age to complete this topic Meningococcal B Vacine Aged Out No lo nger eligible based on patient's age to complete this topic RSV Immunization Patients Under 20 months Aged Out No longer eligible b ased on patient's age to complete this topic Varicella Vaccines Aged Out No longer eligible based on patient's age to complete this topic
--- OUTSIDE RECORDS SUMMARY | 2024-07-31 14:15 | XMS_ITS ---
Author Organization [facility] Address [address] [place] [address] Phone Care Team Providers Care Bone Char Operator Name Role Phone [facility] Unavailable [phone] Plan of Treatment No Plan of Treatment Recorded Assessments Includes: Assessments for all patient encounters No Assessments Recorded Medical Equipment - Implanted Devices Includes: Current and historical Devices No Medical Equipment Recorded Medications Includes: Current and historical Medications Current Medications (continue as prescribed) Tylenol Oral Tablet 04/27/2022 Provider: Diagnosis: Last Documented On 2 10:55AM By Kee Davalos ; [facility] oxyCODONE HCl 5 MG Oral Capsule 04/27/2022 Provider: Diagnosis: Last Documented On 2 10:55AM By Kee Davalos ; [facility] Medications Administered Includes: Administered Medications in patient's chart No Administered Medications Recorded Results Includes: Results from 07/31/2023 through 07/31/2024 No Results Recorded For Specified Dates History [...] Relationship Effect daron Dates 1 - [facility] [id number] LULU BORJA [facility] 2 - [facility] [id number] LULU BORJA Self Clinical Notes Includes: Signed Clinical Notes starting from 05/31/2022 No Clinical Notes Recorded
--- OUTSIDE RECORDS SUMMARY | 2024-07-31 14:16 | XMS_ITS | Clinical Summary ---
Author Organization [facility] Address [address] [place] [address] Phone Care Team Providers Care Tube Maker Name Role Phone [facility] Unavailable [phone] Reason for Visit and Chief Complaint Established Patient Plan of Treatment Pending Tests Order Diagnosis Results Due Ordering P olga Follow Up - Appointment PRN Displace d spiral fracture of shaft of right tibia, sequela 09/08/22 Eugene Redd MD Last Documented On 3 10:58AM ; [facility] Assessments Includes: Assessments from this encounter No Assessments Recorded Medical Equipment - Implanted Devices Includes: Current Devices No Medical Equipment Recorded Medications Includes: Medications discussed during this encounter and other current Medications Current Medications (continue as prescribed) Tylenol Oral Tablet 04/27/2022 Provider: Diagnosis: Last Documented On 2 10:55AM By Kee Davalos ; [facility] oxyCODONE HCl 5 MG Oral Capsule 04/27/2022 Provider: Diagnosis: Last Documented On 2 10:55AM By Kee Davalos ; [facility] Medications Administered Includes: Administered Medications from [...] Time Diagnosis Established Patient Eugene Redd MD [facility] [place] [facility], 09/09/19 10:40AM 10:54AM Insurance Includes: Active Insurance Policies Plan Name Member ID Group # Subscriber Relationship Effect daron Dates 1 - [facility] [id number] LULU BORJA lf 2 - [facility] [id number] LULU BORJA Self Clinical Notes Includes: Clinical Notes from this encounter * Progress note Date Encounter Last Documented by 09/08/2022 Established Patient Last documeottoniel frankel on 09/08/2022; 10:58 AM, Eugene Redd MD; [facility], Current Medication - oxyCODONE HCl 5 MG [...]
--- OUTSIDE RECORDS SUMMARY | 2024-07-31 14:16 | XMS_ITS | Clinical Summary ---
Author Organization [facility] Address [address] [place] [address] Care Team Providers Care Customer Care Manager Name Role Phone Tami Siu MD Primary Care Provider [phone] Allergies Active Allergy Reactions Criticality Noted Date [...] Description 06/23/2024 10:15 AM EST Clinical Support [facility] [address] [address] Effie Mg Au.D Sensorineural hearing loss, bilateral (Primary Dx); Tinnitus of both ears 06/23/2024 10:00 AM EST Office Visit [facility] [address] [address] Chepe Logan MD Sensorineural hearing [...] Description 09/25/2024 10:30 AM EDT Office Visit [facility] [address], [place] [address] Chepe Logan MD [address] [place] [address] Health Maintenance Due Date Last Done Comments [...] ALICJA from Last 3 Months Care Teams Customer Care Manager Relationship Specialty Start Date End Date Tami Siu MD [address] [place] [address] PCP - General Family Medicine 06/13/24
--- OUTSIDE RECORDS SUMMARY | 2024-07-31 14:16 | XMS_ITS | Clinical Summary ---
Author Organization [facility] Address [address] [place] [address] Phone Care Team Providers Care Garden Implement Mechanic Name Role Phone [facility] Unavailable Unavailable Reason for Visit and Chief [...] - Last Documented On 04/28/2022 11:35AM ; [facility] Pending Tests Order Diagnosis Results Due Ordering Piedad espinoza Follow Up - Appointment 1 Month Displace d spiral fracture of shaft of right tibia, sequela 04/28/22 Bladimir Dorsey MD Last Documented On 2 11:35AM ; [facility] Assessments Includes: Assessments from this encounter No Assessments Recorded Medical Equipment - Implanted Devices Includes: Current Devices No Medical Equipment Recorded Medications Includes: Medications discussed during this encounter and other current Medications Current Medications (continue as prescribed) Tylenol Oral Tablet 04/27/2022 Provider: Diagnosis: Last Documented On 2 10:55AM By Kee Davalos ; [facility] oxyCODONE HCl 5 MG Oral Capsule 04/27/2022 Provider: Diagnosis: Last Documented On 2 10:55AM By Kee Davalos ; [facility] Medications Administered Includes: Administered Medications [...] Last Documented: On 04/27/2022 10:54A M ; [facility], Results Includes: Results discussed during this encounter [...] Post Op Visit/Follow Up Bladimir Dorsey MD [facility] 04/27/20 10:20AM 11:33AM Insurance Includes: Active Insurance Policies Plan Name Member ID Group # Subscriber Relationship Effect daron Dates 1 - [employer] [place] [id number] LULU BORJA [facility] 2 - [facility] [id number] LULU BORJA Self Clinical Notes Includes: Clinical Notes from this encounter No Clinical Notes Recorded
== END 2024-07-31 13:12 | disposition home or self-care (01) ==
LOC: HO.BBR 13:11
PROVIDERS: PCP Family Medicine; Visit Provider Internal Medicine Medical Oncology
DX: Z13.89 Encounter for screening for other disorder (principal)

== ENCOUNTER 2024-10-30 13:57 | Outpatient (REF) | payer MEDICARE, SELFPAY ==
--- OUTSIDE RECORDS SUMMARY | 2024-10-30 14:15 | XMS_ITS | Encounter Summary ---
Author Organization [facility] Address [address] [place] [address] Care Team Providers Care Strategic Planning Manager Name Role Phone Tami Siu MD Primary Care Provider Encounter Details Date Type Department Care Team (Late st Contact Info) Description 10/27/2024 Telephone [facility] [address], [place] [address] Chepe Logan MD [address] [place] [address] Social History Tobacco Use Types Packs/Day Years Used Date Smoking Tobacco: Never Passive Smoke Exposure: Never Smokeless Tobacco: Never Comments Unknown Sex and Gender Information Value Date Recorded Sex Assigned at Female 06/23/2024 8:38 AM EST Legal Sex Female 5:30 PM EDT Gender Identity Female 06/23/2024 8:38 AM EST Sexual Orientation Choose not to disclose 2024 8:38 AM EST documented as of this encounter Miscellaneous Notes * Telephone Encounter - Comfort Quintana MA - 10/30/2024 2:03 PM EDT Call to patient, no answer, VM unavailable. * Telephone Encounter - Comfort Quintana MA - 10/27/2024 12:20 PM EDT Patient calls in for a refill on her ofloxacin drops, wants to have a refill to hold her over untilher appt next month. States her ears are starting to act up again. Leaves # [phone] documented in this encounter Plan of Treatment Upcoming Encounters Date Type Department Care Team (Late st Contact Info) Description 12/12/2024 10:15 AM EDT Office Visit [facility] [address] [place] [address] Chepe Logan MD [address] [place] [address] documented as of this encounter Visit Diagnoses Not on filedocumented in this encounter Care Teams Strategic Planning Manager Relationship Specialty Start Date End Date Tami Siu MD [address] [place] [address] PCP - General Family Medicine 06/13/24 documented as of this encounter
--- OUTSIDE RECORDS SUMMARY | 2024-10-30 14:15 | XMS_ITS | Clinical Summary ---
Author Organization [facility] Address [address] [place] [address] Care Team Providers Care Veterinary Epidemiologist Name Role Phone Tami Siu MD Primary Care Provider [phone] Allergies Active Allergy Reactions Criticality Noted Date Comments Lisinopril Unknown/Patient and Family Unable to Define Medium 06/13/2024 Medications metoPROLOL SUCCINATE (TOPROL-XL) 50 MG 24 hr tablet Take 50 mg by mouth daily. Active ofloxacin (FLOXIN) 0.3 % otic solutionIndicat ions:Acute infective otitis externa, right Administer 5 drops into both ears daily. 5 mL 5 Active Active Problems Problem Noted Date Diagnosed Date HTN (hypertension) 06/13/2024 GERD (gastroesophageal reflux disease) 4 Tinnitus 06/13/2024 Hearing loss 06/13/2024 Encounters Date Type Department Care Team Description 10/27/2024 Telephone [facility] [address] [address] Chepe Logna MD 09/15/2024 Scanned Document [facility] [address] [address] Chepe Logan MD from Last 3 Months Immunizations Immunization Administration Dates Next Due DT 05/04/2002 Influenza High-Dose Trivalen t,(FLUZONE HIGH-DOSE), Perservative Free IM 0.5 mL 65 years and older 04/16/2024,04/29/2023,04/08/2022,04/24,04/09/2020 Pneumococcal Conjugate 13-Valent 02/02/2019 Pneumococcal Polysaccharide 23-Valent 04/09/2020 Zoster Vaccine Live/Attenuat ed (Zostavax) 05/27/2023,01/22/2023 Social History Tobacco Use Types Packs/Day Years Used Date Smoking Tobacco: Never Passive Smoke Exposure: Never Smokeless Tobacco: Never Tobacco Cessation:Counseling Given: Not Answered Comments Unknown Sex and Gender Information Value [...] Description 12/12/2024 10:15 AM EDT Office Visit [facility] [address], [facility] [place] [address] Chepe Logan MD [address] [place] [address] Health Maintenance Due Date Last Done Comments Hepatitis C Virus Screening 1950 Mammogram 1991 Colonoscopy 1996 DTaP/Tdap/Td Vaccines (2 - Tdap) 05/04/2012 05/04/2002 DXA Bone Density (Females,Ages 65 and older) 2016 Zoster (Shingles) Vaccine (2 of 3) 07/22/2023 05/27/2023, 01/22/2023 COVID-19 Vaccine ( season) 2024 Influenza Vaccine 01/19/2025 04/16/2024, , 04/08/2022, Additional history exists RSV Vaccine 60 years and older and Patients (1 - 1-dose 75+ series) 2026 Pneumococcal Vaccines 50+ Completed 04/09/2020, Hepatitis B Vaccines Aged Out No long er eligible based on patient's age to complete this topic Insurance [employer] MED[employer] Care Teams Veterinary Epidemiologist Relationship Specialty Start Date End Date Tami Siu MD [address] [facility] [address] PCP - General Family Medicine 06/13/24
--- OUTSIDE RECORDS SUMMARY | 2024-10-30 14:15 | XMS_ITS | Clinical Summary ---
Author Organization [facility] ity Address [address] [place] [address] Care Team Providers Care Video Arcade Manager Name Role Phone Unavailable Primary Care Provider [...] DTaP,Tdap,and Td Vaccines (1 - Tdap) 1970 Pneumococcal Vaccine: 50+ Years (1 of 1 - PCV) 2001 Zoster Vaccines (1 of 2) 2001 Colorectal Cancer Screening: Colonoscopy 05/23/2022 Depression Screening 05/23/2022 Falls Risk Assessment 05/23/2022 Hepatitis C Screening 05/23/2022 Osteoporosis Screening (Bone Density Screening) 05/23/2022 Social Influencers of Health Screening 05/23/2022 COVID-19 Vaccine ( - 2023-2 5 season) 2024 Influenza Vaccine (Season Ended) 2025 05/10/2019, 04/10/2018 RSV Immunization Adult Patients (1 - 1-dose 75+ series) 2026 HIB [...] age to complete this topic Meningococcal B Vaccine Aged Out No l onger eligible based on patient's age to complete this topic RSV Immunization Patients Under 20 months Aged Out No longer eligible b ased on patient's age to complete this topic Varicella Vaccines Aged Out No longer eligible based on patient's age to complete this topic
--- OUTSIDE RECORDS SUMMARY | 2024-10-30 14:15 | XMS_ITS | Encounter Summary ---
Author Organization [facility] Address [address] [place] [address] Care Team Providers Care Cleaner Signs Name Role Phone Tami Siu MD Primary Care Provider [phone] Encounter Details Date Type Department Care Team (Late st Contact Info) Description 09/15/2024 Scanned Document [facility] [address] [address] Chepe Logan MD [address] [place] [id number] Social History Tobacco Use Types Packs/Day Years [...] AM EST documented as of this encounter Plan of Treatment Upcoming Encounters Date Type Department Care Team (Late st Contact Info) Description 12/12/2024 10:15 AM EDT Office Visit [facility] [address] [address] Chepe Logan MD [address] [place] [address] documented as of this encounter Visit Diagnoses Not on filedocumented in this encounter Care Teams Cleaner Signs Relationship Specialty Start Date End Date Tami Siu MD [address] [facility] [address] PCP - General Family Medicine 06/13/24 documented as of this encounter
== END 2024-10-30 13:58 | disposition home or self-care (01) ==
LOC: HO.BBR 13:57
PROVIDERS: PCP Family Medicine; Visit Provider Internal Medicine Medical Oncology
DX: Z13.89 Encounter for screening for other disorder (principal)

== ENCOUNTER 2025-02-05 14:00 | Outpatient (REF) | payer MEDICARE, SELFPAY ==
--- OUTSIDE RECORDS SUMMARY | 2025-02-05 14:48 | XMS_ITS | Clinical Summary ---
Author Organization [facility] ity Address [address] [place] [address] Care Team Providers Care Space Physicist Name Role Phone Unavailable Primary Care Provider [...] 2) 2001 Colorectal Cancer Screening: Colonoscopy 05/23/2022 Falls Risk Assessment 05/23/2022 Hepatitis C Screening 05/23/2022 Osteoporosis Screening (Bone Density Screening) 05/23/2022 Social Influencers of Health Screening 05/23/2022 COVID-19 Vaccine ( - 2023-2 5 season) 2024 Depression Screening 06/21/2024 Influenza Vaccine (#1) 2025 , 04/10/2018 RSV Immunization Adult Patients (1 - [...]
--- OUTSIDE RECORDS SUMMARY | 2025-02-05 14:48 | XMS_ITS ---
Author Name [facility] Organization Unknown History of Medication Use Medication Directions Dispensed Refills Start Date End Date Stat us tobramycin-dexAMETH asone (TOBRADEX) 0.3-0.1 % ophthalmic suspension 3-5 drops in right ear twice daily for 7 days 12/14/2024 active ciprofloxacin-dexAM ETHasone (CIPRODEX) 0.3-0.1 % otic suspension Administer 4 drops to the right ear 2 (two) times a day. 12/12/2024 active ofloxacin (FLOXIN) 0.3 % otic solution Administer 5 drops into both ears daily. 06/23/2024 07/01/2024 active Allergies Allergen Reaction Severity Comment Documented Date Source Statu s LISINOPRIL UNKNOWN/PATIENT AND FAMILY UNABLE TO DEFINE 06/13/2024 [facility] active Problems Problem Status Onset Date Problem Type Date of Resolution Source Impacted cerumen of right ear active EncounterDiagnosisAct [facility] HTN (hypertension) active 2024-06-13 ProblemAct [facility] Sensorineural hearing loss, bilateral active EncounterDiagnosisAct [facility] Hearing loss active 2024-06-13 ProblemAct [facility] Acute infective otitis externa, right active EncounterDiagnosisAct [facility] GERD (gastroesophageal reflux disease) active 2024-06-13 ProblemAct [facility] Tinnitus active 2024-06-13 ProblemAct [facility] Immunizations Vaccine Date Source Lot Number Status Influenza High-Dose Trivalen t,(FLUZONE HIGH-DOSE), Perservative Free IM 0.5 mL 65 years and older 04/16/2024 [facility] completed Zoster Vaccine Live/Attenuated (Zostavax) 05/27/2023 [facility] completed Influenza High-Dose Trivalen t,(FLUZONE HIGH-DOSE), Perservative Free IM 0.5 mL 65 years and older 04/29/2023 [facility] [id number] completed Zoster Vaccine Live/Attenuated (Zostavax) 01/22/2023 [facility] completed Influenza High-Dose Trivalen t,(FLUZONE HIGH-DOSE), Perservative Free IM 0.5 mL 65 years and older 04/08/2022 [facility] completed Influenza High-Dose Trivalen t,(FLUZONE HIGH-DOSE), Perservative Free IM 0.5 mL 65 years and older 04/24/2021 [facility] [id number] completed Influenza High-Dose Trivalen t,(FLUZONE HIGH-DOSE), Perservative Free IM 0.5 mL 65 years and older 04/09/2020 [facility] [id number] completed Pneumococcal Polysaccharide 23-Valent 04/09/2020 [facility] [id number] completed Pneumococcal Conjugate 13-Valent 02/02/2019 [facility] [id number] completed DT 05/04/2002 [facility] UNK completed Encounters Encounter Type Encounter Reason Primary Diagnosis Location Date Ambulatory Ear Drainage Ear Drainage [place] 01/24/2025 Ambulatory [facility] Loss [facility] 12/12/2024 Ambulatory [place] 06/23/2024 Ambulatory Hearing Loss Hearing Loss [place] 06/23/2024 Ambulatory [place] 06/19/2024 Care Team Organization Name Specialty Phone Email Start Date End Da te [place] [facility] 06/23/2024 [facility] 06/19/2024 [facility] 04/28/2024
--- OUTSIDE RECORDS SUMMARY | 2025-02-05 14:48 | XMS_ITS | Encounter Summary ---
Author Organization [facility] Address [address] [place] [id number] Care Team Providers Care Clamp Carrier Operator Name Role Phone Tami Siu MD Primary Care Provider Encounter Details Date Type Department Care Team (Late st Contact Info) Description 09/15/2024 Scanned Document [facility] [address] [phone] Chepe Logan MD [address] [place] [phone] Social History Tobacco Use Types Packs/Day Years [...] Care Team (Late st Contact Info) Description 08/07/2025 1:00 PM EST Office Visit [facility] [address] [phone] Chepe Logan MD [address] [place] [phone] documented as of this encounter Visit Diagnoses Not on filedocumented in this encounter Care Teams Clamp Carrier Operator Relationship Specialty Start Date End Date Tami Siu MD [address] [place] [address] PCP - General Family Medicine 06/13/24 documented as of this encounter
== END 2025-02-05 14:01 | disposition home or self-care (01) ==
LOC: HO.BBR 14:00
PROVIDERS: PCP Family Medicine; Visit Provider Internal Medicine Medical Oncology
DX: Z13.89 Encounter for screening for other disorder (principal)